=== PATIENT | male | born 1935 | race Caucasian/White ===

== ENCOUNTER 2017-09-14 06:35 | Day surgery (SDC) | payer MEDICARE ==
[2017-09-12 13:33] VITALS: BMI 30.1
[2017-09-14] MEDS ORDERED: cefTRIAXone (Rocephin) 1 gm Inj ONE (07:29)
[2017-09-14] MEDS ORDERED: Lactated Ringer's 1,000 ML IV ONE (08:31)
[2017-09-14 08:39] VITALS: RESP 18
[2017-09-14] MEDS ORDERED: Propofol 10 mg/ml Inj (20 ML) ONE (09:32)
[2017-09-14] MEDS ORDERED: Lidocaine 1% 5ml Abboject IV ONE (09:33)
[2017-09-14] MEDS ORDERED: Lidocaine 2% Jelly (5 ml) TOP ONE (09:33)
[2017-09-14] MEDS ORDERED: HYDROmorphone 0.5 mg/0.5 ml ISec IVP PRN (10:13)
[2017-09-14 13:38] VITALS: BP 142/59; PULSE 56; TEMP 98.6; O2SAT 100
--- NOTE | 2017-09-14 20:06 | OP ---
PROCEDURE DATE: 09/14/2017 PREOPERATIVE DIAGNOSIS: Urethral stricture. POSTOPERATIVE DIAGNOSIS: Urethral stricture. PROCEDURE PERFORMED: Cystoscopy with a laser internal optical urethrotomy. DESCRIPTION OF PROCEDURE: The patient was placed on the operating table in a dorsal lithotomy position. The area of the groin was draped and prepped in the sterile manner. Using a 19 cystoscope, I entered into the urethra atraumatically at the level of the prostatic urethra, I was not able to pass the cystoscope into the bladder. At this time, I used the sensor wire to secure a guide into the bladder. Once this was in place, then I deployed a holmium laser 550 probe and made two incisions, one at the 12 o'clock and one at the 3 o'clock positions in this area, and it was just a pull-through incision because it is in the area of the external sphincter. I did not want to go too deep at this point, but just enough to get the cystoscope into the bladder. Once I was able to do this, I emptied the bladder and then I went back to the area, I see that there is a sufficient opening, so I removed the cystoscope, and then with the sensor wire still in place, I passed the [address] [facility] catheter into the bladder. Once this was done, the urine outflow was clear. The patient was taken from the operating room in good condition. Savana Leone MD
== END 2017-09-14 14:28 | disposition home or self-care (01) ==
LOC: H.OPSURG 06:35
PROVIDERS: ATTEND Urology
DX: N35.9 Urethral stricture, unspecified (principal); E11.9 Type 2 diabetes mellitus without complications; N40.0 Benign prostatic hyperplasia without lower urinary tract symptoms
CPT/HCPCS: 52276; 82948; J0696; J2704; J3010; J7120